=== PATIENT | male | born 2000 | race Caucasian/White ===

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

== ENCOUNTER 2018-11-01 18:28 | Emergency (ER) | payer OTHER ==
[2018-11-01 18:43] VITALS: RESP 18
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
--- NOTE | 2018-11-01 21:04 | XR ---
EXAMINATION TYPE: XR shoulder complete LT DATE OF EXAM: 11/01/2018 COMPARISON: NONE HISTORY: Shoulder pain TECHNIQUE: 3 views FINDINGS: I see no fracture nor dislocation. Joint spaces are normal. There are no pathologic calcifi cations. IMPRESSION: Negative left shoulder exam.
[2018-11-01 21:43] VITALS: BP 114/70; PULSE 66; TEMP 97.8
== END 2018-11-01 21:43 | disposition home or self-care (01) ==
LOC: EC 18:28
DX: R42 Dizziness and giddiness (principal); Q67.6 Pectus excavatum; F90.9 Attention-deficit hyperactivity disorder, unspecified type; Z79.899 Other long term (current) drug therapy; V47.5XXA Car driver injured in collision with fixed or stationary object in traffic accident, initial encounter; Y93.89 Activity, other specified; Y92.410 Unspecified street and highway as the place of occurrence of the external cause
CPT/HCPCS: 70450; 72125; 93005; 99284